=== PATIENT | male | born 1990 | race Two or more races ===

== ENCOUNTER 2023-12-13 13:25 | Emergency (ER) | payer OTHER, SELFPAY ==
[2023-12-13 13:27] VITALS: BP 117/85; BMI 22.6
--- NOTE | 2023-12-13 15:26 | ED.GENMED ---
Addendum entered and electronically signed by Yuniel Cohn PA-C 12/18/23 10:53:
Western blot positive. Called patient and discussed. HE is already taking doxycycline. Answered all questions.
Original Note:
History of Present Illness
General
Chief Complaint: Extremity Pain (non-traumatic)
Source: patient
Time Seen by Provider: 12/13/23 14:38
History of Present Illness
History of Present Illness:
33-year-old male with no significant past medical history presenting emergency department for atraumatic knee pain and swelling that has gotten worse over the last few days. Patient notes that he started to feel some mild discomfort couple of weeks
ago but states that the pain and discomfort sort of plateaued and then started to get worse over the last couple of days. Patient states today he was having trouble range of motion in the left knee which is what brought him into the ER today.
Patient denies any fevers or infectious symptoms, tick bites, redness to the affected left knee, falls, focal weakness or any other concerns. Denies any history of similar.
Past History
Past History
ED Past Medical History: None
ED Past Surgical History: None
Social History
Tobacco: Non-smoker
Alcohol: Occasional
Drug: None
Personal: Single
Living: with family
Employment: Employed
Review of Systems
Review of Systems
All Other Systems: ROS reviewed and negative except as documented in HPI and ROS
Phy Exam
Physical Exam
Physical Exam:
GENERAL: Alert , in no apparent distress
EYE: conjunctiva clear
Head: Normocephalic atraumatic
NECK: Supple,
ENT: mmm.
LUNGS: no acute respiratory distress
NEUROLOGICAL: Alert and oriented
SKIN: Warm and dry, skin intact.
MUSCULOSKELETAL: Left knee: Mild to moderate soft tissue swelling with joint effusion appreciated. There is no overlying erythema. Patient is able to flex and extend the knee but he is unable to flex fully secondary to the swelling. No tenderness
over the gastrocnemius. Extremities otherwise warm and well-perfused and neurovascularly intact.
PSYCH: Normal and appropriate interaction.
Scores
Heart Failure Risk
Heart Failure Risk Score: Not Applicable
Heart Score for Chest Pain Patients
STEMI patient?: Not applicable
Withdrawal Assessment of Alcohol
Withdrawal Assessment Completed?: Not applicable
Course
Orders/Labs/Results
Orders:
Orders
12/13/23 14:38
CR Knee - Left 4 Or More View* Urgent
Comment:
Reason For Exam: pain, edema
12/13/23 15:31
Lyme Progressive Urgent
12/13/23 15:43
Body Fluid Cell Count Urgent
What is the Body Fluid: joint
Date Specimen was Collected: 12/13/23
Time Specimen was Collected: 15:35
Comment: with DIFF
Body Fluid Crystals Urgent
What is the Body Fluid: joint
Date Specimen was Collected: 12/13/23
Time Specimen was Collected: 15:35
Fluid Culture with Gram Stain Urgent
MARQUISE Source: Joint Fluid
Specimen Description:
Date Specimen was Collected: 12/13/23
Time Specimen was Collected: 15:35
Vital Signs
Initial and Last Documented VS:
Initial Vital Signs
Temp Pulse Resp BP Pulse Ox
98 F 98 16 117/85 99
12/13/23 13:27 12/13/23 13:27 12/13/23 13:27 12/13/23 13:27 12/13/23 13:27
Last Documented Vital Signs
Temp Pulse Resp BP Pulse Ox
98 F 98 16 117/85 99
12/13/23 13:27 12/13/23 13:27 12/13/23 13:27 12/13/23 13:27 12/13/23 13:27
Procedures
Incision/Drainage/Joint Aspiration
Left Knee:
Anethesia: 1% Lidocaine
Preparation: cleaned with Hibiclens
Type of procedure: aspiration
How much fluid was obtained?: number in mls (35)
Fluid description: yellowish
Treatment: bandaid applied
MDM/Problems Addressed
Differential Diagnosis Includes:
Gout, osteoarthritis, less concern for septic joint given no fevers and patient still allows for range of motion of the extremity
MDM/Problems Addressed:
33-year-old male present emergency department for left knee pain and swelling. He has a mild to moderate left joint effusion which we performed arthrocentesis on which patient tolerated well and without difficulty. Patient does not wish to wait
for the fluid analysis and prefers to be discharged home. The fluid was clear yellow and without any signs of infection. I did discuss with patient that if his fluid results do seem to be more likely related to infection that he may need to come
back to the emergency department and patient expressed understanding. In the meantime we will trial on a 1 week course of naproxen. Stable for discharge home otherwise.
*Radiology
Radiology exam reviewed: preliminary read by ED provider (No fracture)
*Pulse Oximetry
Patient hypoxic: no
*Critical Care Note
Total Time (30-74mins, 75-104mins- exclusive of procedures): Not Applicable
Patient Management
Escalation/DeEscalation of care consider admission/obs:
Patient's synovial fluid analysis is without signs of infection. There were no crystals seen either. Lyme titer pending. Continue NSAIDs for pain over the next week. Patient aware of return precautions. Stable for discharge home.
ED Attending Note
-
Portions of this chart may have been created with voice recognition software.� Occasional wrong word or��sound alike� substitutions may have occurred due to the inherent limitations of voice recognition software.
Discharge Plan
Departure
Patient Disposition: Home (Routine Discharge)
Date of Disposition: 12/13/23
Time of Disposition: 15:26
Patient with high blood pressure during this ER visit?: No
Discharge Problem:
Effusion of right knee
Instructions: Swollen Joints (DC)
Prescriptions:
New
naproxen 500 mg tablet
500 mg PO BID 7 Days Qty: 14 0RF
Referrals:
NONE,* [Family Provider] -
Interventions
Interventions:
*Risk Screen - Suicide Last Done: 12/13/23 13:27
*General Assessment Last Done: 12/13/23 15:20
*Neglect/Abuse Screening Last Done: 12/13/23 13:27
ED- Fall Risk Assessment Last Done: 12/13/23 15:20
*ED COVID-19 Vaccine History Last Done: 12/13/23 15:20
*Nursing Disposition Last Done: 12/13/23 16:00
ED-Skin Assessment Last Done: 12/13/23 15:20
ED-Peripheral Vascular Assessment Last Done: 12/13/23 19:44
ED-Musculoskeletal Assessment Last Done: 12/13/23 15:20
Discharge Date and Time
Discharge Date/Time: 12/13/23 16:00
Print Language: AMHARIC
[2023-12-13 16:10] LABS: Body Fluid Mononuclear 12.1 %; Body Fluid Polymorphonuclear 87.9 %; Body Fluid WBC 38730 /CUMM
[2023-12-13 16:13] LABS: Body Fluid Second Tech EYM
[2023-12-14 11:51] LABS: Lyme Antibody Screen, EIA Presump. Positive (Negative)
[2023-12-17 16:06] LABS: Lyme Ab Western Blot IgG Positive (Negative); Lyme Ab Western Blot IgM Positive (Negative)
== END 2023-12-13 16:00 | disposition home or self-care (01) ==
LOC: EMR 13:25
PROVIDERS: Physician Assistant Medical; EMERGENCY PHYSICIAN Emergency Medicine
DX: M25.461 Effusion, right knee (principal)
CPT/HCPCS: 99283; 20610; 73564; 86617; 86618; 87015; 87070; 87205; 89051; 89060